=== PATIENT | female | born 1970 | race Caucasian/White ===

== ENCOUNTER → 2016-05-21 | Day surgery (SDC) | payer OTHER | END | disposition home or self-care (01) | LOC: FAS 06:27 | DX: G56.03 Carpal tunnel syndrome, bilateral upper limbs (principal); I10 Essential (primary) hypertension; E04.9 Nontoxic goiter, unspecified; E89.0 Postprocedural hypothyroidism; Z79.899 Other long term (current) drug therapy; Z88.0 Allergy status to penicillin; Z87.891 Personal history of nicotine dependence | CPT/HCPCS: J2405; J2704; J3010 ==

== ENCOUNTER 2021-11-30 09:22 | Emergency (ER) | payer OTHER ==
[2021-11-30 11:13] LABS: BASOPHIL 0.4 % (0-2); EOSINOPHIL 0.7 % (0-5); HCT 39.9 % (37.0-47.0); HGB 13.2 g/dl (12.5-16.0); LYMPHOCYTE 21.5 % (15-48); MCH 32.6 pg (25.0-31.0); MCHC 33.1 g/dL (32.0-36.0); MCV 98.5 fL (78.0-100.0); MONOCYTE 4.2 % (0-12); MPV 9.9 fL (6.0-9.5); NEUTROPHIL 72.9 % (41-80); NRBC 0; PLT 290 K/uL (150-400); RBC 4.05 M/uL (4.20-5.40); RDW 12.5 % (11.5-14.0); WBC 9.7 K/uL (4.0-10.5)
[2021-11-30 11:21] LABS: INR 0.95 (0.9-1.2); PROTHROMBIN TIME 12.4 SECONDS (11.9-13.9); PTT 23.9 SECONDS (24.9-34.6)
[2021-11-30 11:41] LABS: ALBUMIN 3.9 g/dL (3.4-5.0); BILIRUBIN - TOTAL 0.4 mg/dL (0.2-1.0); CREATININE 0.84 mg/dL (0.51-0.95); GLOBULIN (CALCULATION) 3.5 g/dL; POTASSIUM 3.9 mmol/L (3.5-5.1); TOTAL PROTEIN 7.4 g/dL (6.4-8.2)
[2021-11-30 11:49] LABS: CORONAVIRUS 2019 SARS-COV-2 NEGATIVE (NEGATIVE); INFLUENZA A NAA NEGATIVE (NEGATIVE)
[2021-11-30] MEDS ORDERED: RIZATRIPTAN10 M1 SL (14:02)
[2021-11-30] MEDS ORDERED: ONDANSETRON ODT4 MG PO (14:02)
[2021-11-30] MEDS ORDERED: ANTIVERT25 MG PO (14:02)
== END 2021-11-30 14:25 | disposition home or self-care (01) ==
LOC: FER 09:22
PROVIDERS: Internal Medicine
DX: R42 Dizziness and giddiness (principal); R51.9 Headache, unspecified; I10 Essential (primary) hypertension; E78.5 Hyperlipidemia, unspecified; E03.9 Hypothyroidism, unspecified; Z20.822 Contact with and (suspected) exposure to COVID-19; Z87.891 Personal history of nicotine dependence; Z88.2 Allergy status to sulfonamides; Z79.890 Hormone replacement therapy; Z79.899 Other long term (current) drug therapy
CPT/HCPCS: 36415; 70450; 71045; 80053; 83880; 84145; 84484; 85025; 85610; 85730; 93005; 96372; J1885; J2765; J3030; U0002